=== PATIENT | female | born 2000 | race African-American/Black ===

== ENCOUNTER 2023-11-04 22:36 | Emergency (ER) | payer OTHER | END 2023-11-05 00:33 | disposition home or self-care (01) | LOC: CSHERS 22:36 | DX: S90.32XA Contusion of left foot, initial encounter (principal); S90.31XA Contusion of right foot, initial encounter; S80.812A Abrasion, left lower leg, initial encounter; S80.811A Abrasion, right lower leg, initial encounter; V89.2XXA Person injured in unspecified motor-vehicle accident, traffic, initial encounter ==